=== PATIENT | male | born 1935 | race Caucasian/White ===

== ENCOUNTER 2023-04-26 13:22 | Outpatient (CLI) | payer MEDICARE, BC | END 2023-04-26 13:23 | disposition home or self-care (01) | LOC: CSHULT 13:22 | PROVIDERS: ATTEND Family Medicine | DX: M79.604 Pain in right leg (principal); R79.1 Abnormal coagulation profile ==

== ENCOUNTER 2023-06-21 11:03 | Observation (INO) | payer MEDICARE, BC ==
[~2023-06-21 11:03] MED LIST: Iopamidol 370 76% 100 ML VIAL ONE
[2023-06-21 11:42] LABS: #Monocytes 0.6 10x3/uL (0.0-1.1); #Neutrophils 3.1 10x3/uL (1.5-8.4); %Basophils 0.5 % (0.0-2.0); %Eosinophils 0.2 % (0.0-6.0); %Lymphocytes 13.3 % (18.0-47.0); %Monocytes 13.3 % (0.0-10.0); %Neutrophils 72.5 % (40.0-75.0); Hematocrit 36.7 % (38.8-50.0); Hemoglobin 12.4 g/dL (13.5-17.5); Mean Corpuscular HGB CONC 33.8 g/dL (32.0-36.0); Mean Corpuscular Hemoglobin 32.5 pg (27.0-33.0); Mean Corpuscular Volume 96.3 fl (81.2-95.1); Mean Platelet Volume 10.3 fl (7.4-10.4); Platelet Count 197 10x3/uL (150-450); RBC Distribution Width 13.2 % (11.5-14.5); Red Blood Cell (RBC) Count 3.81 10x6/uL (4.32-5.72); White Blood Cell (WBC) Count 4.2 10x3/uL (3.5-10.5)
[2023-06-21 12:07] LABS: INR-International Normal Ratio 1.1; PTT 31.8 sec (22.0-33.0); Prothrombin Time 11.4 sec (9.5-12.1)
[2023-06-21 12:25] LABS: ALT (SGPT) 11 U/L (8-55); AST (SGOT) 24 U/L (5-34); Albumin 3.8 g/dL (3.4-4.8); Alkaline Phosphatase 78 U/L (40-110); Anion Gap 15 mmol/L (10-20); BUN (Urea Nitrogen) 19 mg/dL (8.4-25.7); Bilirubin, Total 0.8 mg/dL (0.2-1.2); Calc. Creatinine Clearance 0 mL/min (70-130); Calcium 9.1 mg/dL (7.8-10.44); Carbon Dioxide 22 mmol/L (23-31); Chloride 102 mmol/L (98-107); Estimated GFR 84; Globulin 2.8 g/dL (2.4-3.5); Glucose 94 mg/dL (83-110); Magnesium 1.9 mg/dL (1.6-2.6); Potassium 3.9 mmol/L (3.5-5.1); Protein, Total 6.6 g/dL (5.8-8.1); Sodium 135 mmol/L (136-145)
[2023-06-21 13:04] LABS: Bilirubin Neg (Negative); Blood, Urine 150 (Negative); Clarity Clear (Clear); Glucose, Urine (Dipstick) Normal (Negative); Ketone, Urine 15 mg/dL (Negative); Leukocyte Negative (Negative); Nitrite Negative (Negative); Protein, Urine (Dipstick) Negative (Neg-Trace); Urobilinogen Normal mg/dL (Less than 2)
[2023-06-21 13:22] LABS: SARS-CoV-2 NAA Rapid Test Not Detected (NotDetected)
[2023-06-21 13:24] LABS: Bacteria/HPF None Seen HPF (None Seen); CAUTI Indications for Culture Alt mental st,lethar; RBC/HPF 21-50 HPF (0-3); Squamous Epithelial None Seen HPF (0-3); Urine Culture Reflex No No; WBC/HPF None Seen HPF (0-3)
[2023-06-21] MEDS ORDERED: Ondansetron PF 4 MG/2 ML Vial IVP PRN (15:43)
[2023-06-21] MEDS ORDERED: Acetaminophen 325 MG TAB PO PRN (15:43)
[2023-06-21] MEDS ORDERED: Acetaminophen 650 MG Suppository PR PRN (15:43)
[2023-06-21] MEDS ORDERED: hydrALAZINE 20 MG/ML VIAL SLOW IVP PRN (15:43)
[2023-06-21] MEDS ORDERED: Ondansetron ODT 4 MG TAB PO PRN (15:43)
[2023-06-21] MEDS ORDERED: Electrolyte Replacement Protocol 1 EACH FS SCH (15:45)
[2023-06-21] MEDS ORDERED: Aspirin 325 mg Enteric Coated Tablet PO SCH (15:47)
[2023-06-21 15:53] VITALS: BMI 17.2
[2023-06-21] MEDS ORDERED: FLU VACC QS2023(65UP)/MF59C/PF 60 MCG/0.5 ML SYRINGE IM ONE (17:30)
[2023-06-21] MEDS: Atorvastatin Calcium 40 MG TAB PO SCH (20:38)
[2023-06-21] MEDS ORDERED: Magnesium 2 GM/50 ML(in water) 2 GM in Premix Bag 1 BAG IVPB SCH (21:00)
[2023-06-22 04:36] LABS: #Monocytes 0.6 10x3/uL (0.0-1.1); #Neutrophils 2.5 10x3/uL (1.5-8.4); %Basophils 0.3 % (0.0-2.0); %Eosinophils 0.6 % (0.0-6.0); %Lymphocytes 13.6 % (18.0-47.0); %Monocytes 16.9 % (0.0-10.0); %Neutrophils 68.3 % (40.0-75.0); Hematocrit 35.2 % (38.8-50.0); Hemoglobin 11.9 g/dL (13.5-17.5); Mean Corpuscular HGB CONC 33.8 g/dL (32.0-36.0); Mean Corpuscular Hemoglobin 32.4 pg (27.0-33.0); Mean Corpuscular Volume 95.9 fl (81.2-95.1); Mean Platelet Volume 10.3 fl (7.4-10.4); Platelet Count 192 10x3/uL (150-450); RBC Distribution Width 13.2 % (11.5-14.5); Red Blood Cell (RBC) Count 3.67 10x6/uL (4.32-5.72); White Blood Cell (WBC) Count 3.6 10x3/uL (3.5-10.5)
[2023-06-22 04:48] LABS: Anion Gap 12 mmol/L (10-20); BUN (Urea Nitrogen) 17 mg/dL (8.4-25.7); Calc. Creatinine Clearance 49 mL/min (70-130); Calcium 8.5 mg/dL (7.8-10.44); Carbon Dioxide 24 mmol/L (23-31); Cardiac Risk 3.2 (Less than 4.5); Chloride 103 mmol/L (98-107); Cholesterol 139 mg/dl (< 200 Desired); Estimated GFR 84; Glucose 82 mg/dL (83-110); HDL Cholesterol 43 mg/dL (>60 Neg Risk); LDL Cholesterol, Calculated 85 mg/dL; Magnesium 2.3 mg/dL (1.6-2.6); Potassium 3.9 mmol/L (3.5-5.1); Sodium 135 mmol/L (136-145); Triglycerides 56 mg/dL (Less than 150)
[2023-06-22] MEDS: Aspirin 81 mg Enteric Coated Tablet PO SCH (08:19)
[2023-06-22] MEDS: Tamsulosin HCl 0.4 MG CAP PO SCH (08:20)
[2023-06-22 12:07] LABS: Hemoglobin A1c 5.4 % (4.0-6.0)
[2023-06-22] MEDS: Atorvastatin Calcium 40 MG TAB PO SCH (20:58)
[2023-06-23 05:31] LABS: #Monocytes 0.5 10x3/uL (0.0-1.1); #Neutrophils 2.2 10x3/uL (1.5-8.4); %Basophils 0.3 % (0.0-2.0); %Eosinophils 0.9 % (0.0-6.0); %Lymphocytes 19.2 % (18.0-47.0); %Neutrophils 64.3 % (40.0-75.0); Hematocrit 39.1 % (38.8-50.0); Hemoglobin 13.6 g/dL (13.5-17.5); Mean Corpuscular HGB CONC 34.8 g/dL (32.0-36.0); Mean Corpuscular Volume 94.9 fl (81.2-95.1); Mean Platelet Volume 10.7 fl (7.4-10.4); Platelet Count 212 10x3/uL (150-450); Red Blood Cell (RBC) Count 4.12 10x6/uL (4.32-5.72); White Blood Cell (WBC) Count 3.4 10x3/uL (3.5-10.5)
[2023-06-23 05:42] LABS: ALT (SGPT) 13 U/L (8-55); AST (SGOT) 26 U/L (5-34); Albumin 3.8 g/dL (3.4-4.8); Alkaline Phosphatase 91 U/L (40-110); Anion Gap 14 mmol/L (10-20); BUN (Urea Nitrogen) 16 mg/dL (8.4-25.7); Bilirubin, Total 0.7 mg/dL (0.2-1.2); Calc. Creatinine Clearance 50 mL/min (70-130); Calcium 9.2 mg/dL (7.8-10.44); Carbon Dioxide 23 mmol/L (23-31); Chloride 101 mmol/L (98-107); Estimated GFR 84; Globulin 2.9 g/dL (2.4-3.5); Glucose 93 mg/dL (83-110); Magnesium 2.1 mg/dL (1.6-2.6); Protein, Total 6.7 g/dL (5.8-8.1); Sodium 134 mmol/L (136-145)
[2023-06-23 08:41] VITALS: BP 186/95; TEMP 97.6
[2023-06-23] MEDS: Aspirin 81 mg Enteric Coated Tablet PO SCH (11:40)
[2023-06-23] MEDS: Tamsulosin HCl 0.4 MG CAP PO SCH (11:41)
== END 2023-06-23 12:08 | disposition home or self-care (01) ==
LOC: CSHERS 11:03 → CSHTELE 13:43
PROVIDERS: ADMIT Hospitalist; ATTEND Internal Medicine
DX: G93.41 Metabolic encephalopathy (principal); E87.1 Hypo-osmolality and hyponatremia; I12.9 Hypertensive chronic kidney disease with stage 1 through stage 4 chronic kidney disease, or unspecified chronic kidney disease; N18.2 Chronic kidney disease, stage 2 (mild); D64.9 Anemia, unspecified; E83.42 Hypomagnesemia; E78.5 Hyperlipidemia, unspecified; Z79.899 Other long term (current) drug therapy
CPT/HCPCS: 0042T; 0240U; 51701; 70450; 70551; 71045; 80048; 80053 ×2; 80061; 81001; 82962; 83036; 83735 ×3; 84443; 85025 ×3; 85610; 85730; 93005; 93306; 94760 ×3; 96372; 96374; 97116; 99285; G0378 ×3; 36415; 36416; J1650; J3475; Q9967